=== PATIENT | female | born 1970 | race African-American/Black ===

== ENCOUNTER 2018-01-18 14:27 | Emergency (ER) | payer MEDICARE, MEDICAID ==
[~2018-01-18] VITALS: Ht 175.3 cm; Wt 117.5 kg
[~2018-01-18 14:27] MED LIST: ADVAIR 100-501 EACH INH; BACTROBAN CREAM30 G1 TOP; BENADRYL ITCH28.3 G1 TP; BENZTROPINE MESY2 MG; BLOOD PRESSURE PILL; CHLORTHALIDONE25 MG PO; COLACE100 MG PO; DEPAKOTE 250MG250 M1; DIFLUCAN150 MG PO; ENALAPRIL MALEA10 M1 PO; GABAPENTIN 100100 MG PO; GEODON40 MG; GEODON40 MG PO; GEODON80 MG PO; KEFLEX500 MG PO; LASIX 20 MG TAB20 MG PO; NASONEX17 GM; NORCO 5-325 TA1 EACH PO; POTASSIUM20 PO; PROAIR HFA8.5 GM; PROMS25 WY RECTAL; PROPRANOLOL 1010 M1; SPIRONOLACTONE25 M1; ZANTAC 150MG T150 M1 PO; ZOFRAN ODT4 MG PO; ZOLOFT50 MG PO
[2018-01-18 15:13] LABS: ABSOLUTE BASOPHILS 0.1 thou/uL (0.0-0.2); ABSOLUTE EOSINOPHILS 0.2 thou/uL (0.0-0.7); ABSOLUTE LYMPHOCYTES 2.3 thou/uL (0.8-5.3); ABSOLUTE MONOCYTES 0.6 thou/uL (0.0-1.2); ABSOLUTE NEUTROPHILS 3.2 thou/uL (1.6-8.1); BASOPHILS 1.1 %; EOSINOPHILS 3.3 %; HEMATOCRIT 38.3 % (37.0-47.0); LYMPHOCYTES 35.8 %; MCH 30.5 pg (26.0-34.0); MCHC 33.9 g/dL (28.0-37.0); MONOCYTES 9.3 %; MPV 8.5 fl. (7.2-11.1); NUCLEATED RBCS 0 /100WBC; PLATELET COUNT* 256 thou/uL (150-400); POLYS 50.5 %; RBC 4.26 mil/uL (4.20-5.00); WBC 6.4 thou/uL (4.0-11.0)
[2018-01-18 15:27] LABS: CALCIUM 9.2 mg/dL (8.5-10.1); POTASSIUM 3.5 mmol/L (3.5-5.1)
[2018-01-18 15:37] LABS: ALBUMIN 3.4 g/dL (3.4-5.0); TOTAL BILIRUBIN 0.5 mg/dL (<0.1-1.0); TOTAL PROTEIN 7.7 g/dL (6.4-8.2)
[2018-01-18 17:51] VITALS: BP 122/89
== END 2018-01-18 17:53 | disposition home or self-care (01) ==
LOC: M.ERS 14:27
PROVIDERS: Nurse Practitioner
DX: R60.0 Localized edema (principal); J45.909 Unspecified asthma, uncomplicated; F20.9 Schizophrenia, unspecified